=== PATIENT | male | born 1945 | race Caucasian/White ===

== ENCOUNTER → 2022-04-18 | Outpatient (CLI) | payer MEDICARE | END | disposition home or self-care (01) | LOC: RAH 13:28 | PROVIDERS: ATTEND Neurological Surgery | DX: I70.213 Atherosclerosis of native arteries of extremities with intermittent claudication, bilateral legs (principal); I65.23 Occlusion and stenosis of bilateral carotid arteries | CPT/HCPCS: 93925 ==

== ENCOUNTER → 2022-05-31 | Outpatient (CLI) | payer MEDICARE ==
[2022-05-31 12:59] LABS: HEMOGLOBIN A1C 5.4 % (4.0-6.0)
[2022-05-31 13:04] LABS: CREATININE 1.1 mg/dL (0.5-1.5); POTASSIUM 4.6 mmol/L (3.5-5.1); T4 (THYROXINE) 9.5 ug/dL (4.7-13.3); THYROID STIMULATING HORMONE 3.04 uIU/mL (0.36-3.74); TOTAL PROTEIN, SERUM 7.3 g/dL (6.0-8.3)
[2022-05-31 13:39] LABS: BASOPHILS % (AUTO) 0.5 % (0.0-5.0); EOSINOPHILS % (AUTO) 1.7 % (0.0-8.0); HEMATOCRIT 48.3 % (42-54); LYMPHOCYTES % (AUTO) 18.7 % (21.0-51.0); MEAN CORPUSCULAR HEMOGLOBIN 31.1 pg (27.0-33.0); MEAN CORPUSCULAR HGB CONC 32.5 g/dL (32.0-36.0); MEAN CORPUSCULAR VOLUME 95.6 fL (79-99); MONOCYTES % (AUTO) 8.8 % (3.0-13.0); NEUTROPHILS % (AUTO) 69.6 % (40.0-77.0); PLATELET COUNT (AUTO) 251 K/uL (130-400); RED BLOOD CELL COUNT(AUTO) 5.05 MIL/uL (4.50-6.20); RED CELL DISTRIBUTION WIDTH 14.2 % (11.0-15.5); WHITE BLOOD COUNT (AUTO) 7.6 K/uL (4.8-10.8)
== END | disposition home or self-care (01) ==
LOC: LAB 08:09
PROVIDERS: ATTEND Internal Medicine Cardiovascular Disease
DX: I73.9 Peripheral vascular disease, unspecified (principal); I10 Essential (primary) hypertension; Z79.899 Other long term (current) drug therapy
CPT/HCPCS: 36415; 80053; 80061; 83036; 84436; 84443; 84479; 85025

== ENCOUNTER 2022-07-17 08:00 | Observation (INO) | payer MEDICARE ==
[~2022-07-17] VITALS: Ht 188 cm; Wt 104.1 kg
[2022-07-17 10:27] LABS: BASOPHILS % (AUTO) 0.5 % (0.0-5.0); EOSINOPHILS % (AUTO) 0.9 % (0.0-8.0); LYMPHOCYTES % (AUTO) 12.8 % (21.0-51.0); MEAN CORPUSCULAR HEMOGLOBIN 30.8 pg (27.0-33.0); MEAN CORPUSCULAR HGB CONC 31.7 g/dL (32.0-36.0); MONOCYTES % (AUTO) 7.6 % (3.0-13.0); NEUTROPHILS % (AUTO) 77.4 % (40.0-77.0); PLATELET COUNT (AUTO) 252 K/uL (130-400); RED BLOOD CELL COUNT(AUTO) 4.74 MIL/uL (4.50-6.20); RED CELL DISTRIBUTION WIDTH 13.7 % (11.0-15.5); WHITE BLOOD COUNT (AUTO) 8.8 K/uL (4.8-10.8)
[2022-07-17 10:38] LABS: POTASSIUM 4.5 mmol/L (3.5-5.1)
[2022-07-17 11:00] VITALS: BP 127/67
[2022-07-17] MEDS ORDERED: ASCO500C18 PO (11:24)
[2022-07-17] MEDS ORDERED: CHOL200013 PO (11:24)
[2022-07-17] MEDS ORDERED: COQ-10 PO (11:24)
[2022-07-17] MEDS ORDERED: NITR0.4T50 SL (11:24)
[2022-07-17] MEDS ORDERED: ACET-2247 PO (11:24)
[2022-07-17] MEDS ORDERED: ASPI-1005 PO (11:24)
[2022-07-17] MEDS ORDERED: ENAL2.5T16 PO (11:24)
[2022-07-17] MEDS ORDERED: GABA-529 PO (11:24)
[2022-07-17] MEDS ORDERED: PANT40TA54 PO (11:24)
[2022-07-17] MEDS ORDERED: ATOR-2 PO (11:24)
[2022-07-18] VITALS (25 sets, daily range): BP systolic 100–137; BP diastolic 52–79
[2022-07-18] MEDS ORDERED: BUPIVACAINE/EPI/PF 0.5% 30ML VIAL IJ ONE (04:57)
[2022-07-18] MEDS ORDERED: CEFAZOLIN SODIUM 1 GM VIAL ONE ×3 (04:57→21:49)
[2022-07-18] MEDS ORDERED: THROMBIN-JMI 20000 UNIT KIT TP ONE (04:58)
[2022-07-18] MEDS ORDERED: MORPHINE PF 100MG/10ML AMP IV ONE (04:58)
[2022-07-18] MEDS ORDERED: LACTATED RINGERS 1000ML 1,000 ML IV ONE (05:52)
[2022-07-18] MEDS: CEFAZOLIN SODIUM 1 GM VIAL IVPB SCH ×2 (06:00→08:00)
[2022-07-18] MEDS ORDERED: PROPOFOL 1000 MG/100 ML 100 ML IV ONE ×2 (06:25→06:50)
[2022-07-18] MEDS ORDERED: LIDOCAINE PF 100MG/5ML (2%) SYRINGE 5ML ONE (07:37)
[2022-07-18] MEDS ORDERED: SUCCINYLCHOLINE CHLORIDE 20 MG/ML 10 ML VIAL ONE ×2 (07:37→08:02)
[2022-07-18] MEDS ORDERED: EPHEDRINE SULFATE 50 MG/ML AMPULE ONE (07:37)
[2022-07-18] MEDS ORDERED: MIDAZOLAM HCL 1 MG/ML 2ML VIAL ONE (07:39)
[2022-07-18] MEDS ORDERED: PROPOFOL 10 MG/ML 20ML VIAL IV ONE ×3 (07:53→09:40)
[2022-07-18] MEDS ORDERED: FENTANYL CITRATE PF 50 MCG/1 ML 2ML VIAL ONE (07:54)
[2022-07-18] MEDS ORDERED: ROCURONIUM 10MG/1ML SYR 10 MG/ML ML ONE (07:55)
[2022-07-18] MEDS ORDERED: PHENYLEPHRINE HCL 10 MG/ML 1ML VIAL IV ONE ×2 (08:34→10:47)
[2022-07-18] MEDS ORDERED: DEXAMETHASONE SOD PHOSPHATE 4 MG/ML 1ML VIAL ONE (10:16)
[2022-07-18] MEDS ORDERED: KETOROLAC 30MG VIAL (30MG/ML) ONE (10:17)
[2022-07-18] MEDS ORDERED: ONDANSETRON 4MG INJ ONE (10:17)
[2022-07-18] MEDS ORDERED: CEFAZOLIN SODIUM 2 GM VIAL IVPB ONE (11:35)
[2022-07-18] MEDS ORDERED: MORPHINE 2 MG SYG IVP PRN (12:30)
[2022-07-18] MEDS ORDERED: NITROGLYCERIN 0.4 MG SL TAB SL PRN (12:30)
[2022-07-18] MEDS ORDERED: HYDROCODONE/ACETAMINOPHEN 5/325 MG TAB PO PRN (12:30)
[2022-07-18] MEDS: DEXAMETHASONE SOD PHOSPHATE 4 MG/ML 1ML VIAL IVP SCH ×2 (12:30→18:45)
[2022-07-18] MEDS ORDERED: 0.9%NACL 10ML VIAL IVP PRN (12:30)
[2022-07-18] MEDS ORDERED: PROMETHAZINE HCL 25 MG/ML 1ML AMPULE IM PRN (12:30)
[2022-07-18] MEDS ORDERED: ACETAMINOPHEN 325 MG TAB PO PRN (12:30)
[2022-07-18] MEDS: LACTATED RINGERS 1000ML 1,000 ML IV SCH (12:30)
[2022-07-18] MEDS: GABAPENTIN 100 MG CAPSULE PO SCH ×2 (15:16→21:59)
[2022-07-18] MEDS ORDERED: CEFAZOLIN SODIUM 2 GM VIAL IVP SCH (20:00)
[2022-07-19 00:26] VITALS: BP 106/57
[2022-07-19] MEDS: LACTATED RINGERS 1000ML 1,000 ML IV SCH (01:50)
[2022-07-19] MEDS: DEXAMETHASONE SOD PHOSPHATE 4 MG/ML 1ML VIAL IVP SCH ×2 (02:47→06:22)
[2022-07-19 04:22] VITALS: BP 116/64
[2022-07-19] MEDS: GABAPENTIN 100 MG CAPSULE PO SCH (08:04)
[2022-07-19] MEDS ORDERED: NON-FORMULARY MEDICATION 1 EACH (Cholecalciferol (Vitamin D3) (Vitamin D3) 50 MCG) PO SCH (09:00)
[2022-07-19] MEDS ORDERED: ENALAPRIL MALEATE 5 MG TAB PO SCH (09:00)
[2022-07-19] MEDS ORDERED: ASPIRIN 81MG CHEW TAB PO SCH (09:00)
[2022-07-19] MEDS ORDERED: ASCORBIC ACID 500 MG TAB PO SCH (09:00)
[2022-07-19] MEDS ORDERED: ENALAPRIL MALEATE 2.5 MG PO SCH (09:00)
[2022-07-19] MEDS ORDERED: NON-FORMULARY MEDICATION 1 EACH (Atorvastatin Calcium 80 MG) PO SCH (09:00)
[2022-07-19] MEDS ORDERED: VITAMIN D3 50 MCG PO SCH (09:00)
[2022-07-19] MEDS ORDERED: ATORVASTATIN 40 MG TABLET PO SCH (09:00)
[2022-07-19] MEDS ORDERED: PANTOPRAZOLE 40 MG TAB DR PO SCH (09:00)
[2022-07-19] MEDS ORDERED: NON-FORMULARY MEDICATION 1 EACH (Ascorbic Acid (Vitamin C) 500 MG) PO SCH (09:00)
[2022-07-19] MEDS ORDERED: COQ PO SCH ×2 (09:00)
== END 2022-07-19 12:00 | disposition home or self-care (01) ==
LOC: EDSTATUS 08:00 → DAHIP 07-18 05:30 → 4AH 07-18 13:30
PROVIDERS: ADMIT Neurological Surgery; ATTEND Neurological Surgery
DX: M48.061 Spinal stenosis, lumbar region without neurogenic claudication (principal); Z20.822 Contact with and (suspected) exposure to COVID-19; M24.28 Disorder of ligament, vertebrae; Z79.82 Long term (current) use of aspirin; Z87.891 Personal history of nicotine dependence; Z95.5 Presence of coronary angioplasty implant and graft; Z79.899 Other long term (current) drug therapy; Z98.890 Other specified postprocedural states
CPT/HCPCS: 80048; 85025; 87426; 36415; 71045; 63047; 63048 ×3; 96374; 96375; 72020; 96376; J1100 ×4; G0378 ×23; G0379; A4663; J7030; J7120 ×2; A4344; J3010; J0690 ×5; J0330 ×2; J2001; J3490 ×2; J2250; J2704 ×5; J2274; J2405; J1885; J2370 ×2; A4649 ×3; A4215; A4223; A4222; A4221; A4600; A4510

== ENCOUNTER → 2024-02-14 | Outpatient (CLI) | payer MEDICARE ==
[~2024-02-14] MED LIST: ACET-2247 PO; ASCO500C18 PO; ASPI-1005 PO; ATOR-2 PO; CHOL200013 PO; COQ-10 PO; ENAL2.5T71 PO; GABA-529 PO; NITR0.4T50 SL; PANT40TA54 PO
== END | disposition home or self-care (01) ==
LOC: RAH 14:30
DX: M19.011 Primary osteoarthritis, right shoulder (principal); M25.512 Pain in left shoulder
CPT/HCPCS: 73030